=== PATIENT | female | born 1955 | race Caucasian/White ===

== ENCOUNTER → 2017-05-07 | Outpatient (CLI) | payer OTHER ==
[~2017-05-07] MED LIST: ATOR20TA58 PO; ESTR30CR VG; FLU60SYR IM; FLU60VIA21 IM; GADOBUTROL 7.5 MMOL/7.5 ML VIAL INT ART ONE; IOHEXOL 300 MG/ML 50 ML VIAL. INT ART ONE; LIDOCAINE 1% Multi-Dose 20 ML VIAL. ID ONE; METH4TAB6 PO; NAPR375T3 PO
--- NOTE | 2017-05-07 13:33 | KCIC ---
Two compartment left wrist injection using fluoroscopic guidance prior to MRI examination. Indication: Left wrist pain. Cystlike swelling. Pain of the radial aspect; weakness in electrician control equipment.. Technique: The procedure and risks were explained to the patient. All questions were answered. Informed written consent and verbal consent was obtained. A timeout was performed which confirmed the name of patient and date of and the type of procedure and side of the procedure. The dorsal aspect of the left wrist was prepped and draped in the usual sterile manner. Following 1 cc of 1% lidocaine for local anesthetic, a 25-gauge needle was advanced into the radiocarpal joint. After negative aspiration, 2 cc of a solution of 10 cc Omnipaque 300 contrast, 10 cc normal saline, and 0.2 cc gadolinium was injected without difficulty. The left wrist was evaluated fluoroscopically. 3 fluoroscopic spot views were performed. Following 1 cc of 1% lidocaine for local anesthetic, a new 25-gauge needle was advanced into the distal radioulnar joint. Following negative aspiration, 1 cc of the contrast mixture was injected. The left breast was evaluated fluoroscopically. 3 fluoroscopic spot views were performed. The patient tolerated the injections well, without immediate complication. Patient was taken to the MR scanner in stable condition. Post procedural instructions were given to the patient, and the patient was instructed to call us or the emergency room in the event of the complication. Total fluoroscopic time: 90 seconds. Total fluoroscopic spot images: 6.. Impression: 2 compartment left wrist injection prior to MRI study. Electronically signed by: Kuldeep Foley MD (05/07/2017 1:29 PM) [id number]
--- NOTE | 2017-05-07 13:59 | KCIC ---
MRI LEFT WRIST ARTHROGRAM INDICATIONS: Left wrist pain and swelling. Pain is on the radial side. Weakness in rn mental health. TECHNIQUE: After intra-articular injection into the radial scaphoid joint and the distal radial ulnar joint, post arthrogram MRI sequences of the left wrist were performed in all 3 planes. FINDINGS: No fracture or avascular necrosis is seen. 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 There is lateral subluxation of the first metacarpal with respect to the trapezium bone. There is mild primary degenerative osteoarthritis of the scaphoid trapezium joint. There is mild primary degenerative osteoarthritis of the radial scaphoid joint with mild subchondral cyst formation of the radial styloid process. Alignment is normal. No tear of the scaphoid lunate ligament or the lunate triquetrum ligament is seen. Most of the contrast is outside of the distal radial ulnar joint. Small amount of fluid distention of the distal radial ulnar joint is seen. The triangular fibrocartilage complex is intact. Evaluation of the dorsum of the wrist and the extensor tendon sheaths is difficult given the local anesthetic and contrast injections. However no rupture of the extensor tendons is seen. There is mild tenosynovitis and a partial longitudinal tear of the flexor carpi radialis tendon. Evaluation for ganglion cyst is difficult since contrast opacification of the joint space may fill out a prominent recess which may mimic a ganglion cyst. However, no prominent ganglion cyst is seen involving the anterior lateral aspect of the left wrist. No soft tissue mass of the carpal tunnel is seen. The median nerve is unremarkable. IMPRESSION: Mild tenosynovitis and partial longitudinal tear of the flexor carpi radialis tendon. 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 This most prominently involves the first carpal metacarpal joint. There is lateral subluxation of the first metacarpal with respect to the trapezium bone here. Electronically signed by: Kuldeep Foley MD (05/07/2017 1:56 PM) [id number]
== END ==
LOC: KCIC 10:07
PROVIDERS: ATTEND Physician Assistant
DX: M19.032 Primary osteoarthritis, left wrist (principal); M65.132 Other infective (teno)synovitis, left wrist; M79.89 Other specified soft tissue disorders
CPT/HCPCS: 73115; 73222; A9585; Q9967